=== PATIENT | male | born 1930 | race Caucasian/White ===

== ENCOUNTER 2016-12-11 13:09 | Inpatient (IN) | payer MEDICARE, OTHER ==
--- NOTE | ~2016-12-11 | HP ---
History And Physical [place] [address] [facility] [place]. [address] NAME: CUAUHTEMOC WANG JR : 28 STATUS : ADM IN [facility]#: [id number] AGE: 86 ADM/REG DATE : 12/11/16 MR#: [id number] REPORT SERV DATE: 12/12/16 DICTATED BY: CARLOS QURESHI DATE: 12/11/16 REPORT STATUS : Draft TRANSCRIBED BY: MODLaine DATE: 12/11/16 DATE OF ADMISSION: 12/11/2016 CHIEF COMPLAINT: Shortness of breath. BRIEF HISTORY OF PRESENT ILLNESS: The patient is an 86-year-old white male with multiple comorbidities presented today to the emergency room with complaints of persistent shortness of breath approximately one week ago, then he developed fever, he had become generally weak, and he was having exertional dyspnea as well. He denied any chest pain through all this. His symptoms have been constant, moderate, and progressive in nature. He has not had any headache. He has not had any nausea or vomiting. He has not had any diaphoresis. He did have a cough that was productive, but he is unable to tell the color of his sputum because he is blind. He has not had any wheezing, lower extremity swelling. He has not had any orthopnea or paroxysmal nocturnal dyspnea. He is up to date on his flu vaccination. He has had a poor appetite as well. When he presented to the emergency room he was found to be in septic shock and resuscitation efforts were initiated, and Medicine Service has been asked to evaluate the patient. REVIEW OF SYSTEMS: Review of systems is obtained from the family with the patient, 12-point review of systems otherwise have been negative. PAST MEDICAL HISTORY: Significant for coronary artery disease with recent acute coronary syndrome requiring hospitalization a little over 30 days ago. He has had mild dementia. He has bilateral sensorineural blindness. He has gastroesophageal reflux. He has COPD. Enlargement of the thyroid. He also suffers from chronic atrial fibrillation. PAST SURGICAL HISTORY: Significant for a lobectomy right side secondary to blisters in 1974. Car crush injury at age 34, resulting in bilateral blindness. Prostate biopsy, colonoscopy and EGD, heart catheterization and CABG in September 2016. PEG tube placement at that time as well. He has had a cholecystectomy and generalized osteoarthritis. ALLERGIES: NO KNOWN DRUG ALLERGIES. HOME MEDICATIONS: 1. Xarelto 20 mg once daily. 2. Xanax 1 mg p.r.n. for sleep. 3. Tramadol 50 mg twice daily. 4. Nebivolol 2.5 mg twice daily. 5. Amiodarone 200 mg once daily. 6. BuSpar 7.5 mg twice daily for anxiety. 7. Depakote ER 250 mg once at bedtime. 8. Seroquel 100 mg once at bedtime. 9. Flomax 0.4 mg once daily. 10.Protonix 40 mg once daily. History And Physical [address] [address] NAME: CUAUHTEMOC WANG JR : 28 STATUS : ADM IN [facility]#: [id number] AGE: 86 ADM/REG DATE : 12/11/16 MR#: [id number] REPORT SERV DATE: 12/12/16 DICTATED BY: CARLOS QURESHI DATE: 12/11/16 REPORT STATUS : Draft TRANSCRIBED BY: KARTIK DATE: 12/11/16 SOCIAL HISTORY: He does not smoke, drink, or use illicit substances. The patient lives alone at home with his grandson. The patient's family is at the bedside in the emergency room. FAMILY HISTORY: Significant for type 2 diabetes mellitus and hypertension, but otherwise unremarkable. PHYSICAL EXAMINATION: GENERAL: An elderly white male, lying on a gurney, appears to be in moderate to severe respiratory distress, but somewhat comfortable after using Vapotherm. VITAL SIGNS: Upon arrival to the emergency room, blood pressure 100/35, temp is 99.7, pulse of 105, saturation of 92% to 94% on 100% Vapotherm FiO2. HEENT: Head is normocephalic and atraumatic. Pupils are equal and nonreactive to light. Extraocular muscles are intact. Sclerae anicteric. Conjunctivae normal. Oropharynx without lesions. Tongue protrusion midline. Uvula midline. NECK: Supple. HEART: Regular rate and rhythm. PMI nondisplaced. No murmurs, rubs, or gallops. LUNGS: Diffuse bilateral wheezing, crackles, and rhonchi with evidence of consolidation in both lower lobes is noted. ABDOMEN: Scaphoid, soft, nontender, good bowel sounds. No rebound or guarding. No organomegaly. EXTREMITIES: Without cyanosis, clubbing, or edema. NEUROLOGICAL: The patient is able to move all fours. LABORATORY DATA: 1. ABG; pH of 7.39, pCO2 is 25, PO2 is 58, procalcitonin level is not done yet. 2. Sodium of 138, potassium 4.7, chloride 105, bicarb is 17, BUN is 22, creatinine of 1.61, baseline creatinine in October was about 1.0. Glucose of 121. Calcium is 9.0, magnesium is 2.4. Troponin is less than 0.02. Lactate level is 7.1. 3. White count is 24,000, hemoglobin of 12.0, hematocrit of 36, and platelet count is 487,000. No left shift is noted. PT is 36.5, PTT is 22.9. His INR is 2.0. 4. Influenza screen not done. 5. Blood cultures have been sent from the emergency room. 6. Chest x-ray, portable, increased interstitial thickening likely related to fibrosis with superimposed interstitial edema. The differential diagnosis would include interstitial pneumonia. No pneumothorax or significant pleural effusion. Right prior lung surgery with volume loss and pleural thickening is noted. IMPRESSION: 1. Septic shock. 2. Possibility of bilateral interstitial pneumonia. 3. Hypoxic respiratory failure. 4. Acute kidney injury. 5. Dementia. 6. Coronary artery disease. 7. Hypertension. 8. Bilateral sensorineural blindness. History And Physical [address] [address] NAME: CUAUHTEMOC WANG JR : 28 STATUS : ADM IN [facility]#: [id number] AGE: 86 ADM/REG DATE : 12/11/16 MR#: [id number] REPORT SERV DATE: 12/12/16 DICTATED BY: CARLOS QURESHI DATE: 12/11/16 REPORT STATUS : Draft TRANSCRIBED BY: MODL DATE: 12/11/16 PLAN: The patient will be admitted to IM, the patient needs ICU level care. Start the patient on broad-spectrum antibiotics including Rocephin and azithromycin. Fluid resuscitation. Follow labs. The patient is a DNR. Prognosis is guarded. Repeat labs again. Consider noninvasive ventilation if oxygenation can not be utilized, give aggressive nebulizing treatments. Check other labs. We discussed with family at the bedside, they understand and agree with the current plan of care. CHUY/KARTIK Carlos Qureshi M.D. / [id number] CC: Alice Barton M.D.
--- NOTE | ~2016-12-11 | DS ---
Discharge Summary [facility] [address] [place]. [address] NAME: CUAUHTEMOC WANG JR : 28 STATUS : ADM IN PAT#: [id number] AGE: 86 ADM/REG DATE : 12/11/16 MR#: [id number] REPORT SERV DATE: 12/16/16 DICTATED BY: Dain THACKER DATE: 12/16/16 REPORT STATUS : Draft TRANSCRIBED BY: MODL DATE: 12/16/16 ADMISSION DATE: 12/11/2016 DISCHARGE DATE: 12/16/2016 SUMMARY DIAGNOSES AT DISCHARGE: [id number] respiratory failure with hypoxia; pulmonary fibrosis, suspected; bilateral pneumonia, present on admission; sepsis syndrome, present on admission; advanced dementia; encephalopathy secondary to multifactors including infection and hypoxia; [id number] protein-calorie malnutrition; hypernatremia. CONSULTS: Dr. Kathleen, Palliative Care. PROCEDURES: None. BRIEF HOSPITAL COURSE: An 86-year-old male with advanced dementia, who was living with family support and sitters, was admitted with severe bilateral pneumonia, sepsis syndrome, and respiratory failure in the setting of chronic lung disease and advanced dementia. Placed in intermediate care on BiPAP with broad-spectrum antimicrobial support. The patient did seem to somewhat clinically respond over the next several days with decrease in his elevated WBC count as well as some clearing in his chest x-ray. Unfortunately, despite this clinical improvement, he was still requiring significant BiPAP support for oxygenation. After long discussion with the family, they had already made him a DNR/DNI, but felt like if the patient did not clinically improve over the next few days that they felt like they did not want to continue BiPAP support as they felt like this was against his long-term care plans. Palliative Care was involved to help them work through these decisions. We ultimately continued medical therapy and BiPAP support for roughly 48 additional an hours with no significant clinical improvement. As a result, BiPAP was discontinued and the patient was made full comfort measures. The patient within a matter of hours off BiPAP with his family at his bedside. We had medications in place to maximize symptom control and pain management. The patient did pass comfortably. The certificate was completed by myself. There was no autopsy requested. There will be no organ donation. Significant labs at the time of his passing, white count was 26.0, hemoglobin 11.1, BUN 26, creatinine 1.01. [facility] Dain Thacker M.D. / [id number] CC: Alice Barton M.D.
[2016-12-11 11:50] LABS: ALLENS TEST Pos; BE (BASE EXCESS) -8.9 MEQ/L (0 +/- 2.5); CARBOXYHEMOGLOBIN 1.5 % (0-3); HCO3 (ACTUAL BICARBONATE) 14.4 MEQ/L (23-27); HEMOBLOGIN CONTENT 12.3 G/DL (14-18); INSTRUMENT SERIAL # 8087; METHEMOGLOBIN 0.2 % (0-3); O2 CONTENT 14.4 VOL% (18-24); OPERATOR ID 14335; PCO2 (CO2 TENSION) 25 MMHG (35-45); PO2 (O2 TENSION) 58 MMHG (79-93); SAMPLE Arterial; pH 7.39 (7.37-7.43)
[2016-12-11 12:14] LABS: BASOPHILS 0.2 %; BASOPHILS ABSOLUTE 0.06 10/3/uL (0.0-0.16); EOSINOPHILS 0.1 %; EOSINOPHILS ABSOLUTE 0.02 10/3/uL (0.0-0.53); HEMATOCRIT 36.9 % (40.0-51.0); IMMATURE GRANULOCYTES 0.6 %; IMMATURE GRANULOCYTES ABSOLUTE 0.14 10/3/uL (0.0-0.11); LYMPHOCYTES 5.8 %; LYMPHOCYTES ABSOLUTE 1.45 10/3/uL (0.67-4.30); MEAN CORPUS HGB CONC 32.5 g/dL (32.0-36.0); MEAN CORPUSCULAR HEMOGLOB 27.6 pg (26.0-34.0); MEAN PLATELET VOLUME 8.9 fL (9.2-13.0); MONOCYTES 6.3 %; MONOCYTES ABSOLUTE 1.58 10/3/uL (0.21-1.20); NEUTROPHILS ABSOLUTE 21.69 10/3/uL (2.02-8.40); PARTIAL THROMBO TIME 36.5 SEC (22.5-37.2); RBC DISTRIBUTION WIDTH 16.3 % (12.0-16.0); RED CELL COUNT 4.35 10/6/uL (4.7-6.1)
[2016-12-11 12:15] LABS: ER CBC TAT 0 Hrs 18 Mins; MANUAL DIFF NO %; MEAN CORPUSCULAR VOLUME 84.8 fL (80-100); PLATELET COUNT 487 10/3/uL (150-400); PROTIME (NOT ORD) 22.9 SEC (12.0-14.5); WHITE BLOOD CELLS 24.9 10/3/uL (4.5-10.5)
[2016-12-11 12:22] LABS: BUN (BLOOD UREA NITROGEN) 22 MG/DL (6-23); CHEST PAIN PROFILE TAT 0 Hrs 25 Mins; CHLORIDE, SERUM 105 MMOL/L (96-112); CO2 (CARBON DIOXIDE) 17 MMOL/L (24-34); CREATININE 1.61 MG/DL (0.70-1.30); GFR AFRICAN AMERICAN 44 ML/MIN (>=60); GFR NON AFRICAN AMERICAN 38 ML/MIN (>=60); GLUCOSE, SERUM 121 MG/DL (60-99); POTASSIUM, SERUM 4.7 MMOL/L (3.5-5.3); SODIUM, SERUM 138 MMOL/L (135-148); TROPONIN I <0.02 NG/ML (<0.05)
[2016-12-11 12:29] LABS: LACTATE 7.1 MMOL/L (0.3-2.4)
[2016-12-11 13:06] LABS: SEGMENTED NEUTROPHIL (0) 81 %; TOTAL NUCLEATED CELLS 100
[2016-12-11 13:08] LABS: BAND NEUTROPHILS 1 %; ER DIFF TAT 1 Hrs 09 Mins; LYMPHOCYTES 6 %; LYMPHOCYTES ABSOLUTE (CALC) 1.49 10/3/uL (0.67-4.30); MONOCYTES 12 %; MONOCYTES ABSOLUTE (CALC) 2.99 10/3/uL (0.21-1.20); NEUTROPHILS ABSOLUTE (CALC) 20.42 10/3/uL (2.02-8.40)
[~2016-12-11 13:09] MED LIST: ARICEPT5 PO; ASA5GR PO; ASAB PO; ASABAYER PO; ASAEC PO; ASPIRIN; ATROVENTUD INH; BROVANA15 MCG INH; BUSPAR15 M1 PO; BUSPIRONE7.5 MG PO; C25 PO; CELEXA20 PO; CIP5 PO; CITALOPRAM PO; CORDARONE PO; DEPAK250ER PO; DEPAKUDL PO; FEOSOLEL PO; FLOMAX4 PO; FLONASE NAS; FOLIC PO; ISORDIL10; JEVITY; LOP25 PO; MELA3 PO; NEXIUM40 PO; OTC SINUS MED PO; PARAFON FORTE500 MG PO; PAX20 PO; PCET PO; PROTONIX PO; PULRESP.5 INH; SENTAB PO; SEROQUEL1C PO; SEROQUEL50 MG PO; ULTRAM50 PO; VITAMIN C PO; VITC500 PO; X25 PO; XANAX1 MG PO; ZOFRAN ODT4 MG PO
[2016-12-11 13:11] LABS: PLATELET ESTIMATE SLT INC (ADEQUATE)
[2016-12-11 13:12] LABS: ANISOCYTOSIS 1+ (5-10/OIF) (0-5/OIF)
[2016-12-11] MEDS ORDERED: XARELTO20 MG PO (13:16)
[2016-12-11] MEDS ORDERED: XANAX1 MG PO (13:17)
[2016-12-11] MEDS ORDERED: ULTRAM50 PO (13:18)
[2016-12-11] MEDS ORDERED: BYSTOLIC2.5 MG PO (13:19)
[2016-12-11] MEDS ORDERED: CORDARONE PO (13:19)
[2016-12-11] MEDS ORDERED: BUSPIRONE7.5 MG PO (13:20)
[2016-12-11] MEDS ORDERED: SEROQUEL1C PO (13:21)
[2016-12-11] MEDS ORDERED: DEPAK250ER PO (13:21)
[2016-12-11] MEDS ORDERED: FLOMAX4 PO (13:21)
[2016-12-11] MEDS ORDERED: PROTONIX PO (13:22)
[2016-12-11 18:02] LABS: WBC (NOT ORDERED) (RFLEX) 0 (0-5)
[2016-12-11 18:14] LABS: ASCORBIC ACID (UR NOT ORDER) NEG (NEG); BILIRUBIN, URINE NEGATIVE (NEG); ER URINALYSIS TAT 0 Hrs 13 Mins; KETONE, URINE TRACE MG/DL (NEG); LEUKOCYTE ESTERASE(NOT OR NEG (NEG); NITRITE (URINE) NEG (NEG)
[2016-12-11 20:10] LABS: ALLENS TEST Pos; BE (BASE EXCESS) -6.4 MEQ/L (0 +/- 2.5); CARBOXYHEMOGLOBIN 0.3 % (0-3); HEMOBLOGIN CONTENT 10.8 G/DL (14-18); INSTRUMENT SERIAL # 8083; METHEMOGLOBIN 0.2 % (0-3); O2 CONTENT 14.5 VOL% (18-24); OPERATOR ID 14661; PCO2 (CO2 TENSION) 27 MMHG (35-45); PO2 (O2 TENSION) 79 MMHG (79-93); SAMPLE Arterial; pH 7.41 (7.37-7.43)
[2016-12-12 03:45] LABS: BASOPHILS 0.3 %; BASOPHILS ABSOLUTE 0.05 10/3/uL (0.0-0.16); EOSINOPHILS 0.7 %; EOSINOPHILS ABSOLUTE 0.12 10/3/uL (0.0-0.53); IMMATURE GRANULOCYTES 0.4 %; IMMATURE GRANULOCYTES ABSOLUTE 0.07 10/3/uL (0.0-0.11); LYMPHOCYTES 4.8 %; LYMPHOCYTES ABSOLUTE 0.84 10/3/uL (0.67-4.30); MEAN CORPUS HGB CONC 31.6 g/dL (32.0-36.0); MEAN CORPUSCULAR HEMOGLOB 26.4 pg (26.0-34.0); MEAN CORPUSCULAR VOLUME 83.6 fL (80-100); MEAN PLATELET VOLUME 8.5 fL (9.2-13.0); MONOCYTES 6.9 %; MONOCYTES ABSOLUTE 1.19 10/3/uL (0.21-1.20); NEUTROPHILS 86.9 %; NEUTROPHILS ABSOLUTE 15.09 10/3/uL (2.02-8.40); PLATELET COUNT 391 10/3/uL (150-400); RBC DISTRIBUTION WIDTH 16.6 % (12.0-16.0); RED CELL COUNT 3.48 10/6/uL (4.7-6.1); WHITE BLOOD CELLS 17.4 10/3/uL (4.5-10.5)
[2016-12-12 03:46] LABS: HEMATOCRIT 29.1 % (40.0-51.0); HEMOGLOBIN 9.2 g/dL (13.6-17.8); MANUAL DIFF NO %
[2016-12-12 04:01] LABS: BUN (BLOOD UREA NITROGEN) 19 MG/DL (6-23); CHLORIDE, SERUM 113 MMOL/L (96-112); GLUCOSE, SERUM 106 MG/DL (60-99); PHOSPHORUS, SERUM 2.6 MG/DL (2.5-4.5); POTASSIUM, SERUM 4.2 MMOL/L (3.5-5.3)
[2016-12-12 04:02] LABS: CALCIUM, SERUM 7.4 MG/DL (8.5-10.4); CO2 (CARBON DIOXIDE) 22 MMOL/L (24-34); CREATININE 0.95 MG/DL (0.70-1.30); GFR AFRICAN AMERICAN 83 ML/MIN (>=60); GFR NON AFRICAN AMERICAN 72 ML/MIN (>=60); SODIUM, SERUM 145 MMOL/L (135-148)
[2016-12-13 03:49] LABS: ALLENS TEST Pos; BE (BASE EXCESS) -8.5 MEQ/L (0 +/- 2.5); CARBOXYHEMOGLOBIN 0.3 % (0-3); HCO3 (ACTUAL BICARBONATE) 16.1 MEQ/L (23-27); HEMOBLOGIN CONTENT 10.4 G/DL (14-18); INSTRUMENT SERIAL # 8083; METHEMOGLOBIN 0.2 % (0-3); O2 CONTENT 14.4 VOL% (18-24); PCO2 (CO2 TENSION) 30 MMHG (35-45); PO2 (O2 TENSION) 107 MMHG (79-93); SAMPLE Arterial; pH 7.34 (7.37-7.43)
[2016-12-13 05:37] LABS: A/G RATIO 0.5 (0.7-1.9); ALBUMIN 1.9 G/DL (3.5-5.0); ALKALINE PHOSPHATASE 78 U/L (45-117); BUN (BLOOD UREA NITROGEN) 20 MG/DL (6-23); CALCIUM, SERUM 8.2 MG/DL (8.5-10.4); CHLORIDE, SERUM 115 MMOL/L (96-112); CO2 (CARBON DIOXIDE) 18 MMOL/L (24-34); CREATININE 0.83 MG/DL (0.70-1.30); GFR AFRICAN AMERICAN 92 ML/MIN (>=60); GFR NON AFRICAN AMERICAN 79 ML/MIN (>=60); GLOBULIN 3.8 G/DL (2.5-4.1); GLUCOSE, SERUM 124 MG/DL (60-99); PHOSPHORUS, SERUM 3.2 MG/DL (2.5-4.5); POTASSIUM, SERUM 3.9 MMOL/L (3.5-5.3); SGOT(AST) 16 U/L (5-40); SGPT(ALT) 16 U/L (5-65); SODIUM, SERUM 146 MMOL/L (135-148); TOTAL BILIRUBIN 0.3 MG/DL (0-1.2); TOTAL PROTEIN 5.7 G/DL (6.0-8.5)
[2016-12-13 05:39] LABS: BASOPHILS 0.2 %; BASOPHILS ABSOLUTE 0.03 10/3/uL (0.0-0.16); EOSINOPHILS 0.2 %; EOSINOPHILS ABSOLUTE 0.03 10/3/uL (0.0-0.53); HEMATOCRIT 30.2 % (40.0-51.0); HEMOGLOBIN 9.7 g/dL (13.6-17.8); IMMATURE GRANULOCYTES 0.5 %; IMMATURE GRANULOCYTES ABSOLUTE 0.08 10/3/uL (0.0-0.11); LYMPHOCYTES 4.3 %; LYMPHOCYTES ABSOLUTE 0.71 10/3/uL (0.67-4.30); MEAN CORPUS HGB CONC 32.1 g/dL (32.0-36.0); MEAN CORPUSCULAR HEMOGLOB 27.6 pg (26.0-34.0); MEAN CORPUSCULAR VOLUME 85.8 fL (80-100); MEAN PLATELET VOLUME 8.7 fL (9.2-13.0); MONOCYTES 6.5 %; MONOCYTES ABSOLUTE 1.07 10/3/uL (0.21-1.20); NEUTROPHILS 88.3 %; NEUTROPHILS ABSOLUTE 14.56 10/3/uL (2.02-8.40); PLATELET COUNT 403 10/3/uL (150-400); RBC DISTRIBUTION WIDTH 16.7 % (12.0-16.0); RED CELL COUNT 3.52 10/6/uL (4.7-6.1); WHITE BLOOD CELLS 16.5 10/3/uL (4.5-10.5)
[2016-12-13 05:47] LABS: MANUAL DIFF NO %
[2016-12-14 05:59] LABS: BASOPHILS 0.1 %; BASOPHILS ABSOLUTE 0.01 10/3/uL (0.0-0.16); EOSINOPHILS 0 %; HEMATOCRIT 30.3 % (40.0-51.0); HEMOGLOBIN 9.5 g/dL (13.6-17.8); IMMATURE GRANULOCYTES 0.3 %; IMMATURE GRANULOCYTES ABSOLUTE 0.05 10/3/uL (0.0-0.11); LYMPHOCYTES 2.5 %; LYMPHOCYTES ABSOLUTE 0.45 10/3/uL (0.67-4.30); MANUAL DIFF NO %; MEAN CORPUS HGB CONC 31.4 g/dL (32.0-36.0); MEAN CORPUSCULAR VOLUME 86.1 fL (80-100); MEAN PLATELET VOLUME 8.7 fL (9.2-13.0); MONOCYTES 5.8 %; MONOCYTES ABSOLUTE 1.03 10/3/uL (0.21-1.20); NEUTROPHILS 91.3 %; NEUTROPHILS ABSOLUTE 16.16 10/3/uL (2.02-8.40); PLATELET COUNT 347 10/3/uL (150-400); RBC DISTRIBUTION WIDTH 16.9 % (12.0-16.0); RED CELL COUNT 3.52 10/6/uL (4.7-6.1); WHITE BLOOD CELLS 17.7 10/3/uL (4.5-10.5)
[2016-12-14 06:20] LABS: A/G RATIO 0.5 (0.7-1.9); ALBUMIN 1.9 G/DL (3.5-5.0); ALKALINE PHOSPHATASE 88 U/L (45-117); BUN (BLOOD UREA NITROGEN) 17 MG/DL (6-23); CALCIUM, SERUM 8.4 MG/DL (8.5-10.4); CHLORIDE, SERUM 118 MMOL/L (96-112); CREATININE 0.64 MG/DL (0.70-1.30); GFR AFRICAN AMERICAN 102 ML/MIN (>=60); GFR NON AFRICAN AMERICAN 88 ML/MIN (>=60); GLOBULIN 3.8 G/DL (2.5-4.1); GLUCOSE, SERUM 116 MG/DL (60-99); PHOSPHORUS, SERUM 2.3 MG/DL (2.5-4.5); SGOT(AST) 18 U/L (5-40); SGPT(ALT) 16 U/L (5-65); SODIUM, SERUM 148 MMOL/L (135-148); TOTAL BILIRUBIN 0.4 MG/DL (0-1.2); TOTAL PROTEIN 5.7 G/DL (6.0-8.5)
[2016-12-14 06:32] LABS: CO2 (CARBON DIOXIDE) 15 MMOL/L (24-34); POTASSIUM, SERUM 3.1 MMOL/L (3.5-5.3)
[2016-12-15 06:56] LABS: BASOPHILS 0 %; EOSINOPHILS 0 %; HEMATOCRIT 31.1 % (40.0-51.0); HEMOGLOBIN 9.8 g/dL (13.6-17.8); IMMATURE GRANULOCYTES 0.3 %; IMMATURE GRANULOCYTES ABSOLUTE 0.04 10/3/uL (0.0-0.11); LYMPHOCYTES 2.3 %; LYMPHOCYTES ABSOLUTE 0.29 10/3/uL (0.67-4.30); MEAN CORPUS HGB CONC 31.5 g/dL (32.0-36.0); MEAN CORPUSCULAR HEMOGLOB 26.9 pg (26.0-34.0); MEAN CORPUSCULAR VOLUME 85.4 fL (80-100); MEAN PLATELET VOLUME 8.8 fL (9.2-13.0); MONOCYTES 3.9 %; MONOCYTES ABSOLUTE 0.49 10/3/uL (0.21-1.20); NEUTROPHILS 93.5 %; NEUTROPHILS ABSOLUTE 11.85 10/3/uL (2.02-8.40); PLATELET COUNT 287 10/3/uL (150-400); RED CELL COUNT 3.64 10/6/uL (4.7-6.1); WHITE BLOOD CELLS 12.7 10/3/uL (4.5-10.5)
[2016-12-15 06:59] LABS: MANUAL DIFF NO %
[2016-12-15 07:17] LABS: BUN (BLOOD UREA NITROGEN) 23 MG/DL (6-23); CALCIUM, SERUM 8.2 MG/DL (8.5-10.4); CHLORIDE, SERUM 118 MMOL/L (96-112); CO2 (CARBON DIOXIDE) 14 MMOL/L (24-34); CREATININE 0.78 MG/DL (0.70-1.30); GFR AFRICAN AMERICAN 94 ML/MIN (>=60); GFR NON AFRICAN AMERICAN 81 ML/MIN (>=60); GLUCOSE, SERUM 141 MG/DL (60-99); POTASSIUM, SERUM 3.2 MMOL/L (3.5-5.3); SODIUM, SERUM 151 MMOL/L (135-148)
[2016-12-16 05:57] LABS: HEMATOCRIT 33.5 % (40.0-51.0); HEMOGLOBIN 11.1 g/dL (13.6-17.8); MEAN CORPUSCULAR HEMOGLOB 27.3 pg (26.0-34.0); MEAN PLATELET VOLUME 9.2 fL (9.2-13.0); NUCLEATED RED BLOOD CELLS 0.5 /100WBC (0-0); PLATELET COUNT 350 10/3/uL (150-400); RED CELL COUNT 4.06 10/6/uL (4.7-6.1)
[2016-12-16 06:01] LABS: MANUAL DIFF YES %; MEAN CORPUS HGB CONC 33.1 g/dL (32.0-36.0); MEAN CORPUSCULAR VOLUME 82.5 fL (80-100)
[2016-12-16 06:07] LABS: BUN (BLOOD UREA NITROGEN) 26 MG/DL (6-23); CALCIUM, SERUM 8.9 MG/DL (8.5-10.4); CHLORIDE, SERUM 115 MMOL/L (96-112); CREATININE 1.01 MG/DL (0.70-1.30); GFR AFRICAN AMERICAN 77 ML/MIN (>=60); GFR NON AFRICAN AMERICAN 67 ML/MIN (>=60); GLUCOSE, SERUM 126 MG/DL (60-99); SODIUM, SERUM 154 MMOL/L (135-148)
[2016-12-16 06:12] LABS: CO2 (CARBON DIOXIDE) 25 MMOL/L (24-34)
[2016-12-16 06:20] LABS: BAND NEUTROPHILS 2 %; IMMATURE GRANS ABSOLUTE (CALC) 0.26 10/3/uL (0.0-0.11); LYMPHOCYTES 1 %; LYMPHOCYTES ABSOLUTE (CALC) 0.26 10/3/uL (0.67-4.30); MONOCYTES 1 %; MONOCYTES ABSOLUTE (CALC) 0.26 10/3/uL (0.21-1.20); MYELOCYTES 1 %; NEUTROPHILS ABSOLUTE (CALC) 25.22 10/3/uL (2.02-8.40); SEGMENTED NEUTROPHIL (0) 95 %; TOTAL NUCLEATED CELLS 100
[2016-12-16 06:21] LABS: PLATELET ESTIMATE ADQ (ADEQUATE)
[2016-12-16 06:22] LABS: ANISOCYTOSIS 1+ (5-10/OIF) (0-5/OIF)
== END 2016-12-16 16:05 | disposition expired | DRG 871 ==
LOC: ER 13:09 → IMCU 17:40
PROVIDERS: Emergency Medicine; Hospitalist; Internal Medicine
DX: A41.9 Sepsis, unspecified organism (principal); R65.21 Severe sepsis with septic shock; J96.01 Acute respiratory failure with hypoxia; E43 Unspecified severe protein-calorie malnutrition; N17.9 Acute kidney failure, unspecified; G93.49 Other encephalopathy; J18.9 Pneumonia, unspecified organism; F03.90 Unspecified dementia, unspecified severity, without behavioral disturbance, psychotic disturbance, mood disturbance, and anxiety; I25.10 Atherosclerotic heart disease of native coronary artery without angina pectoris; I10 Essential (primary) hypertension; Z68.22 Body mass index [BMI] 22.0-22.9, adult; Z66 Do not resuscitate
CPT/HCPCS: 36600; 71010; 80048; 80053; 80069; 80202; 81001; 82330; 82803; 82805; 82947; 83605; 83735; 83880; 84100; 84132; 84145; 84295; 84484; 85014; 85025; 85610; 85730; 87040; 87449; 87641; 93005; 94640; 94660; 96374; 96375; 99285; A9270-GY; J0456; J0692; J1170; J1630; J2920; J3370; J3480